=== PATIENT | female | born 1950 | race Caucasian/White ===

== ENCOUNTER 2016-05-04 17:11 | Emergency (ER) | payer MEDICARE ==
[~2016-05-04] VITALS: Ht 154.9 cm; Wt 65.9 kg
[~2016-05-04 17:11] MED LIST: [UNRECOGNIZED DRUG - OTHER] PO; wellbutrin PO
[2016-05-04 17:35] VITALS: BP 118/84; PULSE 63; RESP 16; O2SAT 94
== END 2016-05-04 19:01 | disposition left against medical advice (07) ==
LOC: SED 17:59
DX: Z53.21 Procedure and treatment not carried out due to patient leaving prior to being seen by health care provider (principal)

== ENCOUNTER 2016-10-08 22:19 | Emergency (ER) | payer MEDICARE ==
[~2016-10-08] VITALS: Ht 154.9 cm; Wt 65.0 kg
[2016-10-08 22:22] VITALS: PULSE 103; RESP 18; O2SAT 97
--- NOTE | 2016-10-08 22:43 | ED.REPORT ---
HPI-Hip/Pelvis Prob/Inj Date of Service Oct 08, 2016 ED Provider: Dr. Gentile 66 y/o female with a hx of Parkinsonism presents to the ED complaining of right hip pain that radiates down to her right knee since this morning. Her pain is significantly worse when she stands and walks. She denies falling or any other trauma to the hip. She also denies fever and chills. There are no other complaints at this time. Nursing Notes Stated Complaint: R HIP PAIN Chief Complaint: Extremity Trauma Nursing Notes Reviewed: Yes Allergies: Coded Allergies: aspirin (Verified Allergy, Mild, RASH, 10/08/16) Scheduled ([wellbutrin]) 300 MG PO DAILY Carbidopa/Levodopa-Expunged, Do Not Renew! (Sinemet-CR [id number], Do Not Renew!) 1 Ea Tablet 0.5 TAB PO DAILY Sulindac (Sulindac) 200 Mg Tablet 200 MG PO BID General Time Seen by Provider: 22:43 Chief Complaint Hip pain right Hx Obtained From: Patient Arrived By: Wheelchair Onset Occurred: 5 - 8 hours ago Symptom Duration: Since onset Location: Hip, R lateral aspect Quality: Painful Radiation: Radiation present Severity: Current: Moderate Severity: Maximum: Moderate Recent Healthcare: No recent doctor visit Similar Sx Previous: Yes (on the left side) Past Medical History Past Medical History Parkinsonism Past Surgical History Titanium aleshia in left leg Smoking History Never Smoker Ambulatory Status Wheelchair Review of Systems Constitutional: Denies: Chills, Fever Musculoskeletal: Reports: Joint pain (right hip) Complete sys rev & neg: except as marked. Physical Exam Initial Vital Signs Vital Signs (First) Date Time Temp Pulse Resp B/P Pulse Ox O2 Delivery O2 Flow Rate FiO2 10/08/16 22:22 103 18 97 Room Air 10/09/16 00:31 135/87 10/09/16 02:21 36.7 Initial VS: Reviewed Head / Eyes: Atraumatic, Normocephalic Neck: Supple, Non-tender, Full range of motion Respiratory: Breath sounds normal, Clear to auscultation, No respiratory distress Cardiovascular: Regular rate & rhythm, Heart sounds normal, Intact distal pulses Abdomen / GI: Soft, Non-tender Upper Extremities: Vascular intact, Neuro intact, No swelling, No tenderness Skin: Warm, Dry, No cyanosis Neurologic: Alert, Oriented, Nonfocal Lower Extremity / Pelvis / MS: Atraumatic, No deformity, Neurologic intact, Vascular intact Tender bursa laterally. No tenderness with rotation of hip. General/Constitutional: Awake, Alert, Cooperative Interpretation & Diagnostics Lab Results Interpretation Result Diagram: 10/09/16 0100 10/09/16 0100 Test 10/09/16 01:00 10/09/16 01:01 White Blood Count 8.1th/mm3 (3.8-10.1) Red Blood Count 4.65mil/mm3 (3.90-5.20) Hemoglobin 13.7g/dL (12.0-15.6) Hematocrit 40.5% (35.0-46.0) Mean Corpuscular Volume 87.1fL (81-100) Mean Corpuscular Hemoglobin 29.5pg (27.0-35.0) Mean Corpuscular Hemoglobin Concent 33.8% (32.0-37.0) Red Cell Distribution Width 14.3% (12.3-15.4) Platelet Count 248bil/L (150-400) Neutrophils (%) (Auto) 60.9% (40-74) Lymphocytes (%) (Auto) 26.7% (14-46) Monocytes (%) (Auto) 9.6% (4-12) Eosinophils (%) (Auto) 2.6% (0-5) Basophils (%) (Auto) 0.1% (0-3) Erythrocyte Sedimentation Rate 13mm/hr (0-40) Sodium Level 144mEq/L (134-144) Potassium Level 3.9mEq/L (3.5-5.2) Chloride Level 107mEq/L (97-108) Carbon Dioxide Level 22mmol/L (18-29) Blood Urea Nitrogen 33mg/dL (8-27) Creatinine 0.57mg/dL (0.57-1.00) Estimat Glomerular Filtration Rate 153mL/min (>59) Glucose Level 101mg/dL (60-99) Calcium Level 9.2mg/dL (8.5-10.1) Total Bilirubin 0.3mg/dL (0.0-1.2) Aspartate Amino Transf (AST/SGOT) 49U/L (0-50) Alanine Aminotransferase (ALT/SGPT) 25U/L (0-32) Alkaline Phosphatase 53U/L (25-165) Total Protein 7.1g/dL (6.4-8.4) Albumin 3.8g/dL (3.4-5.0) Hold Hudson Top Tube Received (Received) X-Ray Interpretation Xray Interpretation: Normal X-Ray Ordered: Pelvis Interpretation / Wet Read by: Wet read ED physician Re-Eval/Medical Decision Med Decision/Clinical Course 66-year-old presents with pain over the trochanteric bursa on the right. It is hurting worse weightbearing radius and return knee. There is no pain with rotation of the hip and no pain with flexion. She is limited in multiple rechecks, was severe parkinsonism and severe gait disturbance at baseline. She is ambulating only with assistance and mostly in a wheelchair. Essentially at the moment, she is at most able to transfer with help. She does not desire admission. She particularly would not desire admission with any view towards placement in a jail. Begun with sulindac sodium twice a day for anti-inflammatory, heat and rest, and plan for follow-up with PCP. Recommended consultation with social service this morning Source of Hx: Old records Re-Evaluation/Progress #1: Time of Eval: 23:20 Re-Evaluation/Progress Note: Talked to the pt's family. They don't feel comfortable taking the pt home tonight as they are not able to care for her. They are considering placement in a nursing homr. Re-Evaluation/Progress #2: Time of Eval: 01:52 Patient Status: Condition improved Re-Evaluation/Progress Note: Rechecked pt. She reports relief after Toradol. Discussed lab, imaging results and diagnosis. She does not want to be admitted or go to a jail. She prefers to go home. The pt states "I am so inactive at this time. I can't stand it. I am just really tired ". She denies suicidal ideation. The pt would like to talk to a social services director. Re-Evaluation/Progress #3: Time of Eval: 02:01 Re-Evaluation/Progress Note: Called the pt's family to inform them the pt will be discharged. There was no answer. Counseled Regarding: Diagnosis, Lab results, Need for follow-up, When/why to return to ED Discharge & Departure Impression: Primary Impression: Trochanteric bursitis of right hip Additional Impressions: Osteoarthritis Parkinsonism Disposition: Home Discharge Condition All VS Reviewed: Yes Condition: Stable Patient Instructions: Hip Bursitis (ED) Additional Instructions: Avoid sleeping on the affected side Apply heat to the area three of four times a day Sulindac twice daily with food Follow up with your doc in the off Return if any immediate issues. Return tomorrow at 9am or 10am if you wish to be seen by social sciences research scientist. Referrals: Taylor Castelan MD (PCP) Scribe Attestation Portions of this note were transcribed by Dean Connelly. I,, personally performed the history, physical exam and medical decision-making;I reviewed and confirmed the accuracy of the information in the transcribed note. Signed by Hernandez Ibarra. 10/09/16 copies to: Taylor Castelan MD, Christopher W MD Oct 08, 2016 22:43 Dean Connlely Oct 09, 2016 01:59
[2016-10-09 00:31] VITALS: BP 135/87; PULSE 80; RESP 18; O2SAT 96
[2016-10-09 01:04] LABS: BASOPHILS % (AUTO) 0.1 % (0-3); EOSINOPHILS % (AUTO) 2.6 % (0-5); MONOCYTES % (AUTO) 9.6 % (4-12); Mean Corpuscular Hemoglobin 29.5 pg (27.0-35.0); Mean Corpuscular Volume 87.1 fL (81-100); NEUTROPHILS % (AUTO) 60.9 % (40-74); Platelet Count 248 bil/L (150-400)
[2016-10-09 01:46] LABS: ERYTHROCYTE SEDIMENTATION RATE 13 mm/hr (0-40)
[2016-10-09] MEDS ORDERED: SULI200T79 PO (02:11)
[2016-10-09 02:21] VITALS: BP 155/104; PULSE 93; RESP 18; O2SAT 95
--- NOTE | 2016-10-09 08:22 | DRSVH ---
PROCEDURE: X-RAY PELVIS W/LAT HIP (RT) ([id number]) INDICATIONS: Pain status post 2 falls. TECHNIQUE: AP pelvis with lateral view of the right hip. COMPARISON: [facility], CR, XR FEMUR 2VW LT, 05/04/2016, 16:28. [facility] , CR, XR PELVIS 1 OR 2VW, 05/04/2016, 16:28. FINDINGS: Bones: No displaced fractures or dislocations. Pelvic ring appears intact. There is prominent face t arthropathy in the lower lumbar spine. No suspicious bony lesions. Soft tissues: The visualized bowel gas pattern is normal. No suspicious soft tissue calcifications. IMPRESSION: 1. No displaced fracture or dislocation. Dictated by: Joaquín Golden M.D. on 10/09/2016 at 8:19 Approved by: Joaquín Golden M.D. on 10/09/2016 at 8:20
== END 2016-10-09 02:11 | disposition home or self-care (01) ==
LOC: SED 22:19
DX: M70.61 Trochanteric bursitis, right hip (principal); M19.90 Unspecified osteoarthritis, unspecified site; G20 Parkinson's disease; Z79.82 Long term (current) use of aspirin
CPT/HCPCS: 36415; 73501; 80053; 85025; 85651; 96372; 99284; J1885